=== PATIENT | male | born 1970 | race Caucasian/White ===

== ENCOUNTER 2020-06-24 17:38 | Emergency (ER) | payer SELFPAY ==
--- NOTE | 2020-06-24 17:51 | ED.WOUNDLAC ---
HPI - Wound/Laceration General Chief Complaint: Wound/Laceration Stated Complaint: Laceration on hand Time Seen by Provider: 06/24/20 17:51 Source: patient and RN notes reviewed History of Present Illness HPI narrative: Patient is a 50-year-old male who presents the urgent care with complaints of a laceration between the middle and ring finger of the left hand. 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 Patient states he is not up-to-date on his tetanus. Patient states the incident occurred at approximately 3 PM. Patient has held a paper towel to the area but denies cleaning it. No other acute complaints or injuries. No acute distress noted. Patient aware of plan of care. Some parts of this dictation were generated by voice recognition software and may contain typographical and/or grammatical inaccuracies. Related Data Home Medications Medication Instructions Recorded Confirmed No Home Medications 06/24/20 06/24/20 Allergies Allergy/AdvReac Type Severity Reaction Status Date / Time No Known Allergies Allergy Unverified 01/26/18 16:39 Review of Systems Review of Systems: Narrative: CONSTITUTIONAL: Denies fever, chills, or sweats. EYES: Denies visual changes, redness, or discharge. ENT: Denies rhinorrhea, congestion, sore throat, or otalgia. CARDIOVASCULAR: Denies chest pain, palpitations, or edema. RESPIRATORY: Denies cough or dyspnea. GASTROINTESTINAL: Denies abdominal pain, nausea, vomiting, or diarrhea. GENITOURINARY: Denies dysuria or hematuria. SKIN: Reports of a laceration between the middle and ring finger of the left hand MUSCULOSKELETAL: Denies back pain, joint pain, or myalgia. NEUROLOGIC: Denies headache, numbness, or weakness. All other systems reviewed are negative, except as documented in HPI. PMFSH Comments At the time of my signature, I reviewed and agree with the nursing past medical, surgical, social, and family history. There is no relevant family history pertinent to the patient complaint. Exam Narrative: Exam Narrative: GENERAL: This is a well-nourished, well-developed patient, in no apparent distress. HEAD: normocephalic, atraumatic. EYES: PERRL. Sclera clear/white. Vision is grossly intact. EARS: External ears normal NOSE: External nose normal with no obvious nasal discharge, nares without redness, no rhinorrhea. THROAT: Mucous membranes moist NECK: Neck supple SKIN: 2 cm jagged proximal and laceration to the webspace of left third and fourth digits (middle and ring finger) NEURO: awake, alert, and oriented to person, place and time. There were no obvious focal neurologic abnormalities. EXTREMITIES: No clubbing, cyanosis, or edema. No joint tenderness, effusion, or edema noted. No calf tenderness. Negative Homans sign bilaterally. Course Vital Signs Vital signs: Vital Signs Temperature 97.8 F 06/24/20 18:00 Pulse Rate 71 06/24/20 18:00 Respiratory Rate 16 06/24/20 18:00 Blood Pressure 130/85 06/24/20 18:00 Pulse Oximetry 99 06/24/20 18:00 Temperature 97.8 F 06/24/20 18:00 Pulse Rate 71 06/24/20 18:00 Respiratory Rate 16 06/24/20 18:00 Blood Pressure 130/85 06/24/20 18:00 Pulse Oximetry 99 06/24/20 18:00 Reviewed Procedures Laceration Laceration 1: Site: hand Description: irregular Depth: simple, single layer Local Anesthetic: lidocaine 1% Pre-repair: irrigated and irrigated extensively ====== Skin Level ====== Skin layer closed with: other (Ethilon) Size (cm): 5-0 Number of sutures: 3 ====== Subcutaneous Layer ====== ====== Muscle Layer ====== ====== Tendon Layer ====== Dressin cm jagged edged laceration between digits 3 and 4 (middle and ring finger) of the left hand. Irrigated extensively with Technicare and normal saline. 1-1/2 male of 1% lidocaine used for anesthetic. 3 sutures, 5-0 Ethilon, placed
[2020-06-24 18:00] VITALS: BP 130/85; PULSE 71; RESP 16; TEMP 36.6; O2SAT 99
--- NOTE | 2020-06-24 18:28 | PC.NURSE ---
tdap boostrix vorb document processing specialist right deltoid [id number] lot #[id number] exp 09/25/21
== END 2020-06-24 18:32 | disposition home or self-care (01) ==
PROVIDERS: Emergency Provider Nurse Practitioner Family; PCP Registered Nurse
DX: S61.412A Laceration without foreign body of left hand, initial encounter (principal); W26.8XXA Contact with other sharp object(s), not elsewhere classified, initial encounter; Y99.0 Civilian activity done for income or pay; Z23 Encounter for immunization
CPT/HCPCS: 12001; 90471; 90715; 99212; G0463